=== PATIENT | male | born 1990 | race Caucasian/White ===

== ENCOUNTER → 2016-08-20 | Outpatient (CLI) | payer OTHER ==
--- NOTE | 2016-08-20 16:45 | REP ---
Digital diagnostic bilateral mammography with CAD and focused left breast sonography: History: Left breast lump times 6 months. Tenderness. No comparison breast imaging. Mammographic findings: Craniocaudal and mediolateral oblique views of each breast are obtained. There is a minimal 1 cm area of flame-shaped fibroglandular tissue in the subareolar zone of the left breast consistent with gynecomastia. No mass lesion is seen on either side. No worrisome skin change seen. No architectural distortion or microcalcification is observed. Sonographic findings: The retroareolar region of the left breast is scanned in the area of the palpable abnormality. There is slightly hypoechoic tissue consistent with gynecomastia in the retroareolar region. The right breast is scanned for comparison purposes and a small quantity of similar hypoechoic tissue is seen on the right as well. No mass lesion or acoustic shadowing or cyst is observed sonographically. Impression: BIRADS category 2 benign bilateral breast imaging. Mild gynecomastia pattern, left greater than right. No suspicious imaging features. Clinical follow-up is advised. BI-RADS/ACR category 2 mammogram. Benign finding(s). Routine annual screening mammography (for women over age 40). This mammogram was interpreted with the aid of an FDA-approved computer-aided detection system. The patient states she/he had a clinical breast exam in August 2016. The patient letter being requested is male letter, M2 . Signed by Armando Gomez MD 08/20/2016 05:03 P
== END | disposition home or self-care (01) ==
LOC: M RAD 15:18
PROVIDERS: ATTEND Internal Medicine
DX: N63 Unspecified lump in breast (principal); N62 Hypertrophy of breast

== ENCOUNTER → 2016-08-21 | Outpatient (CLI) | payer OTHER ==
--- NOTE | 2016-08-22 09:58 | ECHO ---
DATE OF PROCEDURE: 08/21/2016 AGE: 25 GENDER: Male REFERRING PHYSICIAN: Dr. Matteo James. HEIGHT: 71 inches. WEIGHT: 199 pounds. BODY SURFACE AREA: 2.1 sq m. OUTPATIENT: INDICATION: Heart murmur. Bradycardia. MEASUREMENTS: 2D MEASUREMENTS: RV - 4.4 cm LV- 5.4 cm Septum - 0.9 cm Posterior wall - 0.8 cm Aortic root - 3.2 cm LA - 3.8 cm LVEF - 60% DOPPLER MEASUREMENTS: AV - 2.0 m/s LVOT - Incorrect Doppler placement. LVOT diameter - 2.2 cm Mean AV gradient - 8 mmHg MV-E: 86 A: 42 EA ratio 2.1 Early mitral deacceleration time 289 ms E-prime - 11 A-prime - 6 E/E prime ratio 7.8 PV - 1.0 m/s Pulmonary artery acceleration time 176 ms RVSP - 28 mmHg IVC - 2.2 cm COMMENTS: Sinus bradycardia without intraventricular conduction disturbance. The technologist found the study to be somewhat technically challenging but that some diagnostic useful information was still obtained. Left atrial size upper limits of normal. Normal left ventricular size. Right heart chamber sizes are upper limits of normal to slightly dilated. Normal LV wall thickness. On Real-time imaging from the parasternal and apical projections, wall motion was symmetrical and normal. Normal appearing mitral valvular apparatus and leaflet excursion with no posterior systolic buckling. Somewhat difficult to state with certainty but it appeared that he had a congenitally bicuspid aortic valve with the commissure between the left and right coronary cusps fused and thickened. These cusps appeared to separate adequately. Normal aortic root. No apparent intracardiac mass or pericardial effusion. Color flow Doppler study taken from the parasternal and apical projections showed mild eccentrically directed aortic insufficiency, trace mitral insufficiency and very mild tricuspid insufficiency with mild pulmonic insufficiency. Guided continuous wave Doppler of his aortic valve showed peak systolic velocity upper limits of normal with a normal mean gradient against a significant degree of LV outflow tract obstruction at this time. Pulsed and continuous wave Doppler of his LV inflow tract taken from the apical four chamber projection showed normal diastolic filling velocities against mitral stenosis. The filling pattern was also normal. His diastolic function was further assessed to be normal by tissue Doppler of his mitral annulus with normal estimated mean left atrial pressure. Pulsed and continuous wave Doppler of his pulmonary trunk showed a normal peak systolic velocity against RV outflow tract obstruction. His pulmonary artery acceleration time was normal against an elevated pulmonary vascular resistance. Guided continuous wave Doppler of his tricuspid valve allowed our estimation of his right ventricular systolic pressure (upper limits of normal). His inferior vena cava was upper limits of normal to mildly dilated with slightly reduced respiratory collapse. CONCLUSIONS: Suspected bicuspid aortic valve without stenosis and only mild eccentric insufficiency. Normal left ventricular size, wall thickness and wall motion. Left atrial size upper limits of normal with normal Doppler assessment of LV diastolic function and estimated mean left atrial pressure. Borderline right heart chamber enlargement yet normal Doppler assessment of pulmonary arterial pressure - possibly reflective of an athletic heart. In light of his aortic valve findings, we would recommend a followup study in 2 years' time. According to the [place] [employer], subacute bacterial endocarditis ( SBE) antibiotic prophylaxis prior to dental or surgical procedures would not be deemed necesary. MTDD
--- NOTE | 2016-08-23 22:20 | HOLTMON ---
Test Date: 2016-08-21 Pat Name: VISHAL LI Department: Room: - Gender: Mental Health Nurse: : 1990 Requested By: Matteo James Order Number: [id number] Reading MD: Bang Tang Interpretive Statements No significant diary entries--no symptoms reported. Heart rate varied between 21 and 172 bpm with very occasional PVCs and moderate PACs. Longest pause was 3 seconds which corresponded to slowest heart rate. No atrial fibrillation was seen. No significant ST events. Bradycardic episodes were sinus with no evidence of Mobitz type 1 or type 2 2nd degree block, nor was there evidence of 3rd degree block. This Holter might reflect a very athletic heart but the profound bradycardia would warrant careful clinical correlation. Electronically Signed On 08-23-2016 22:19:56 EST by Bang Tang
== END | disposition home or self-care (01) ==
LOC: M CARPUL 15:17
PROVIDERS: ATTEND Internal Medicine
DX: R00.1 Bradycardia, unspecified (principal); R93.1 Abnormal findings on diagnostic imaging of heart and coronary circulation